=== PATIENT | male | born 2000 ===

== ENCOUNTER 2021-01-03 12:40 | Emergency (ER) | payer OTHER ==
[~2021-01-03] VITALS: Ht 177.8 cm; Wt 81.8 kg
[2021-01-03 12:47] VITALS: BP 119/67; TEMP 98
[2021-01-03] MEDS ORDERED: FLEXERIL 1010 MG/TAB PO (14:28)
[2021-01-03 14:34] VITALS: PULSE 52
== END 2021-01-03 14:35 | disposition home or self-care (01) ==
LOC: COL.ER 12:40
DX: S06.0X9A Concussion with loss of consciousness of unspecified duration, initial encounter (principal); M25.532 Pain in left wrist; M54.5 Low back pain; M54.2 Cervicalgia; V49.40XA Driver injured in collision with unspecified motor vehicles in traffic accident, initial encounter
CPT/HCPCS: J1885